=== PATIENT | male | born 1975 | race American Indian/Alaskan Native ===

== ENCOUNTER 2017-07-30 20:51 | Emergency (ER) | payer OTHER ==
[2017-07-30 20:57] VITALS: BP 177/110
== END 2017-07-31 03:07 | disposition left against medical advice (07) ==
LOC: ED 20:51
DX: I10 Essential (primary) hypertension (principal); E11.9 Type 2 diabetes mellitus without complications; Z53.21 Procedure and treatment not carried out due to patient leaving prior to being seen by health care provider